=== PATIENT | female | born 1935 | race Caucasian/White ===

== ENCOUNTER → 2018-03-29 | Outpatient (CLI) | payer MEDICARE, OTHER | END | disposition home or self-care (01) | LOC: LAB 12:08 | PROVIDERS: ATTEND Internal Medicine Gastroenterology | DX: R19.7 Diarrhea, unspecified (principal) | CPT/HCPCS: 36415; 87493 ==

== ENCOUNTER → 2019-12-05 | Outpatient (CLI) | payer MEDICARE, OTHER ==
[~2019-12-05] MED LIST: IOHEXOL 240 MG/ML 50ML VIAL. ONE
--- NOTE | 2019-12-05 13:53 | RAD ---
CT abdomen and pelvis with oral contrast only History: Generalized abdominal pain Technique: No intravenous contrast was given. CT imaging was performed of the abdomen and pelvis. Oral contrast was given. Multiplanar images are reviewed. Exposure: One or more of the following individualized dose reduction techniques were utilized for this examination: 1. Automated exposure control 2. Adjustment of the mA and/or kV according to patient size 3. Use of iterative reconstruction technique. Comparison: None Findings: There is no significant abnormality limited visualized lung bases. There has been cholecystectomy. Extrahepatic common bile duct is dilated about 1.6 cm. No obvious focal abnormality is identified of the pancreas, liver, or spleen allowing for noncontrast technique. There is no renal calculus or hydronephrosis. There is diffuse calcified plaque of the abdominal aorta, also likely degree of stenosis at the superior aspect of the superior mesenteric artery origin. Bowel is not significantly dilated. The colon is not entirely opacified with oral contrast during exam. There is appearance of at least moderate wall thickening of the mid to distal sigmoid colon at which there are multiple diverticula present, also some adjacent mild to moderate hazy and strandy inflammatory type change in the central and left pelvis. There is no free air or significant free fluid. Urinary bladder is slightly distended. Normal caliber appendix is visualized without adjacent inflammatory change. There is multilevel lumbar degenerative disc disease and facet degenerative change. There is very mild grade 1 anterior spondylolisthesis L4-5. There is [id number] lumbar levoscoliosis centered upon the superior lumbar spine. There is some variable multilevel lateral recess stenosis of the lumbar spine, also multilevel neural foramina compromise with more significant narrowing on the right at L2-3 and L1-2. Impression: 1. There is wall thickening as well as adjacent mild to moderate inflammatory change about the mid to distal sigmoid colon in the pelvis, evidence of diverticulitis. However colon screening is advised if this has not been performed after resolution of acute symptoms. 2. There is lumbar levoscoliosis. There is multilevel lumbar degenerative disc disease and facet degenerative change. Electronically signed by: Avery Govea MD (12/05/2019 1:50 PM) [id number]
== END | disposition home or self-care (01) ==
LOC: CT 10:31
PROVIDERS: ATTEND Specialist
DX: K57.30 Diverticulosis of large intestine without perforation or abscess without bleeding (principal); N32.89 Other specified disorders of bladder; I70.0 Atherosclerosis of aorta; M51.36 Other intervertebral disc degeneration, lumbar region; M47.816 Spondylosis without myelopathy or radiculopathy, lumbar region; M43.16 Spondylolisthesis, lumbar region; M41.86 Other forms of scoliosis, lumbar region; M48.061 Spinal stenosis, lumbar region without neurogenic claudication; M99.53 Intervertebral disc stenosis of neural canal of lumbar region; Z90.49 Acquired absence of other specified parts of digestive tract
CPT/HCPCS: 74176

== ENCOUNTER → 2019-12-23 | Outpatient (CLI) | payer MEDICARE, OTHER ==
--- NOTE | 2019-12-23 11:25 | RAD ---
EXAM: CT Abdomen and Pelvis without IV contrast CLINICAL HISTORY: Reason: CONTINUED ABDOMINAL PAIN / Spl. Instructions: / History: . COMPARISON: CT abdomen and pelvis 12/05/2019 sCT chest 03/14/2019 TECHNIQUE: Helical CT of the abdomen and pelvis was performed without the administration of IV contrast. Axial, coronal and sagittal reformatted images were generated. ---PQRS compliance statement - One or more of the following individualized dose reduction techniques were utilized for this study: 1. Automated exposure control 2. Adjustment of the mA and/or kV according to patient size 3. Use of iterative reconstruction technique--- FINDINGS: Lack of intravenous contrast limits evaluation of solid organs, vasculature, and lymph nodes. Lower chest: Linear opacities in the lower lobes likely scarring/atelectasis. Nodular opacity on the validation software facilitator image in the right midlung. Abdomen and pelvis: Liver and biliary system: No focal liver lesion. Cholecystectomy clips are seen. No biliary duct dilatation. Spleen: Unremarkable Pancreas: Unremarkable Adrenal glands: Unremarkable Kidneys: No definite renal lesion within the constraints of this noncontrast examination. No hydronephrosis or hydroureter. Lymph nodes/retroperitoneum: No abdominal pelvic lymphadenopathy. Vessels: Dense aortic calcifications are seen. Ectasia of the infrarenal aorta measures 2.3 cm. Dense atherosclerotic calcifications of aorta and main branches. Bowel/Peritoneal cavity: Moderate colonic stool content is seen. No small or large bowel dilatation. No bowel obstruction. Colonic diverticulosis particularly within the sigmoid colon. Mild associated inflammatory changes are seen about the distal sigmoid colon at the site of previously described diverticulitis/colitis. Appendix is normal. No abdominal or pelvic ascites. Abdominal wall: Abdominal wall is grossly unremarkable. Bladder: Mild bladder wall thickening may be seen with cystitis. Bones: Degenerative changes of the spine are seen at multiple levels with leftward curvature of the lumbar spine, otherwise no aggressive osseous lesion is seen. IMPRESSION: 1. Interval decrease in inflammatory changes about the sigmoid colon colonic diverticula suggesting improvement diverticulitis/colitis. No associated loculated collection, free intraperitoneal gas or ascites is seen. Colonoscopy should be performed following resolution of the acute symptoms (if not recently performed) to exclude underlying mass. 2. On the validation software facilitator image, there is small nodule projecting of the right midlung which can be further assessed by CT, likely corresponding to the nodular mass seen on prior CT in the middle lobe. Electronically signed by: Kingsley Gilliland MD (12/23/2019 11:22 AM) [id number]
== END | disposition home or self-care (01) ==
LOC: CT 10:41
PROVIDERS: ATTEND Specialist
DX: K57.30 Diverticulosis of large intestine without perforation or abscess without bleeding (principal); I77.819 Aortic ectasia, unspecified site; I70.0 Atherosclerosis of aorta; M47.816 Spondylosis without myelopathy or radiculopathy, lumbar region; R91.1 Solitary pulmonary nodule
CPT/HCPCS: 74176

== ENCOUNTER → 2019-12-24 | Outpatient (CLI) | payer MEDICARE, OTHER ==
[2019-12-24 12:03] LABS: CALCIUM 9.8 mg/dL (8.5-10.1); CREATININE 1.3 mg/dL (0.6-1.0); GFR 38.9; POTASSIUM 5.9 mmol/L (3.5-5.1)
== END | disposition home or self-care (01) ==
LOC: LAB 11:16
PROVIDERS: ATTEND Specialist
DX: E87.6 Hypokalemia (principal)
CPT/HCPCS: 36415; 80048